=== PATIENT | female | born 1995 | race Caucasian/White ===

== ENCOUNTER 2018-08-31 10:29 | Outpatient (CLI) | payer BC ==
--- NOTE | 2018-08-31 12:40 | RAD ---
LEFT ELBOW FOUR VIEWS: HISTORY: Elbow pain. TECHNIQUE: AP, lateral, and both oblique views of the left elbow obtained. FINDINGS: Four views of the left elbow demonstrate no evidence of left elbow fractures, subluxations, or bony l esions. No chronic or acute abnormalities seen. IMPRESSION: Normal four views left elbow. POS: [facility]
--- NOTE | 2018-08-31 12:42 | RAD ---
RIGHT HAND RADIOGRAPHS THREE VIEWS: 08/31/2018 PROVIDED CLINICAL HISTORY: Joint pain. FINDINGS: There is no evidence for fracture or other acute osseous abnormality. Alignment appears anatomic. J oint spaces appear preserved. No erosive changes are seen. Bone mineralization appears normal. The soft tissues appear radiographically unremarkable. IMPRESSION: No evidence for an acute osseous abnormality or significant arthropathy. POS: [facility]
--- NOTE | 2018-08-31 12:43 | RAD ---
RIGHT ELBOW FOUR VIEWS: HISTORY: Right elbow pain. TECHNIQUE: AP, lateral, and both oblique views of the right elbow are obtained. FINDINGS: Four views of the right elbow demonstrate no evidence of right elbow fractures, subluxations, or bony lesions. IMPRESSION: Normal four views right elbow. POS: [facility]
== END 2018-08-31 10:30 | disposition home or self-care (01) ==
LOC: BICRAD 10:29
DX: M25.521 Pain in right elbow (principal); M25.522 Pain in left elbow; M25.542 Pain in joints of left hand; M25.541 Pain in joints of right hand; Z87.19 Personal history of other diseases of the digestive system

== ENCOUNTER 2019-03-08 15:49 | Outpatient (CLI) | payer BC ==
--- NOTE | 2019-03-08 16:27 | RAD ---
EXAM: XR Abdomen 1 View/KUB PROVIDED CLINICAL HISTORY: Pancolitis/ulcerative colitis. Abdominal pain. COMPARISON: None FINDINGS: There is a small to moderate amount of retained fecal material seen within the region of the ascendin g and transverse colon. Bowel gas pattern is otherwise nonspecific. No suspicious calcifications are seen. Osseous structures have a normal appearance. IMPRESSION: 1. Nonspecific bowel gas pattern with small to moderate amount of retained material seen in the colon .
== END 2019-03-08 15:50 | disposition home or self-care (01) ==
LOC: BICRAD 15:49
DX: K51.00 Ulcerative (chronic) pancolitis without complications (principal)
CPT/HCPCS: 74018